=== PATIENT | male | born 1980 | race Caucasian/White ===

== ENCOUNTER 2018-06-12 20:09 | Observation (INO) | payer OTHER ==
[2018-06-12] MEDS ORDERED: SODIUM CHLORIDE 0.9% 1,000 ML IV STA (21:10)
[2018-06-12] MEDS ORDERED: MORPHINE SULFATE 4 MG/ML SYRINGE IV STA (21:10)
--- NOTE | 2018-06-12 21:12 | ED ---
Abdominal Pain HPI - General Chief Complaint: Abdominal Pain Stated Complaint: Kidney Stone Time Seen by Provider: 06/12/18 20:39 Source: patient, EMS Mode of arrival: EMS Limitations: no limitations - History of Present Illness Initial Comments: Patient is a 37-year-old male presenting for abdominal pain and was a transfer from outside facility. The patient states that for the last 3 days, he has been having called the left-sided flank pain. He was told that he had 2 stones in the left side and he had been trying hasn't outpatient management pain but he has not been able to. He admits to subjective fevers and chills as well as nausea and vomiting. He also admits to increased urination but no hematuria. He was sent here for that facility for urologic evaluation. - Related Data Allergies Allergy/AdvReac Type Severity Reaction Status Date / Time peck Allergy Rash/Hives Verified 06/12/18 20:16 Review of Systems ROS Statement: Those systems with pertinent positive or pertinent negative responses have been documented in the HPI. Constitutional: Negative for chills, fatigue and fever. HENT: Negative for congestion. Respiratory: Negative for chest tightness, shortness of breath and wheezing. Negative for cough Cardiovascular: Negative for chest pain and palpitations. Gastrointestinal: Positive for abdominal pain. Negative for abdominal distention , diarrhea, positive for nausea and vomiting. Genitourinary: Negative for dysuria. Musculoskeletal: Negative for back pain, neck pain and neck stiffness. Skin: Negative for color change. Neurological: Negative for dizziness, speech difficulty, weakness and light- headedness. Psychiatric/Behavioral: Negative for agitation and confusion. Negative for anxiety ROS Other: All systems not noted in ROS Statement are negative. Past Medical History Additional Past Medical History / Comment(s): diabetes. kidney stones History of Any Multi-Drug Resistant Organisms: None Reported Additional Past Surgical History / Comment(s): left below knee leg amputation, left leg surgery Past Psychological History: No Psychological Hx Reported Smoking Status: Current every day smoker Past Alcohol Use History: Occasional Past Drug Use History: None Reported General Exam - General Exam Comments Initial Comments: Constitutional: Pt appears well-developed and well-nourished. No distress. Head: Normocephalic and atraumatic. Eyes: EOM are normal. Neck: Normal range of motion. Neck supple. Cardiovascular: Normal rate, regular rhythm, S1 normal, S2 normal and normal heart sounds. Exam reveals no gallop and no friction rub. No murmur heard. Pulmonary/Chest: Effort normal and breath sounds normal. No tachypnea and no bradypnea. No respiratory distress. No wheezes or rales noted. Abdominal: Soft. Bowel sounds are normal. Pt exhibits no shifting dullness, no distension, no pulsatile liver, no fluid wave, no abdominal bruit and no ascites. There is no rigidity, no rebound, no guarding, no tenderness at McBurney's point and negative Berg's sign. There is no tenderness. Musculoskeletal: Normal range of motion. Neurological: Pt is alert and oriented to person, place, and time. No cranial nerve deficit. Skin: Skin is warm and dry. No rash noted. Pt is not diaphoretic. No erythema. No pallor. Psychiatric: Pt has a normal mood and affect. Pt behavior is normal. Thought content normal. Limitations: no limitations Course Vital Signs 06/12/18 06/12/18 20:12 21:52 Temperature 98.8 F Pulse Rate 73 72 Respiratory 18 18 Rate Blood Pressure 132/90 117/62 O2 Sat by Pulse 99 98 Oximetry Medical Decision Making - Medical Decision Making Laboratory studies showed that there is no significant electrolyte derangements and renal function was preserved. At the time of disposition, urinalysis was pending but the prior labs performed at the outside facility showed no evidence of urinary tract infection as well. Because the patient continued to have pain and had poor follow-up as an outpatient, it was thought that the patient should be placed in observation for evaluation by urology.Explained all labs and diagnostic test results and that we will admit patient to hospital. Pt is agreeable to plan and case has been discussed with Dr. Cagle and they agree to accept the pt. - Lab Data Result diagrams: 06/12/18 21:43 06/12/18 21:43 Lab Results 06/12/18 06/12/18 Range/Units 21:43 21:43 WBC 9.3 (3.8-10.6) k/uL RBC 4.81 (4.30-5.90) m/uL Hgb 14.3 (13.0-17.5) gm/dL Hct 43.4 (39.0-53.0) % MCV 90.3 (80.0-100.0) fL MCH 29.8 (25.0-35.0) pg MCHC 33.0 (31.0-37.0) g/dL RDW 13.8 (11.5-15.5) % Plt Count 148 L (150-450) k/uL Neutrophils % 70 % Lymphocytes % 20 % Monocytes % 5 % Eosinophils % 4 % Basophils % 1 % Neutrophils # 6.5 (1.3-7.7) k/uL Lymphocytes # 1.9 (1.0-4.8) k/uL Monocytes # 0.4 (0-1.0) k/uL Eosinophils # 0.3 (0-0.7) k/uL Basophils # 0.1 (0-0.2) k/uL Sodium 138 (137-145) mmol/L Potassium 4.9 (3.5-5.1) mmol/L Chloride 107 (98-107) mmol/L Carbon Dioxide 25 (22-30) mmol/L Anion Gap 6 mmol/L BUN 18 (9-20) mg/dL Creatinine 1.22 (0.66-1.25) mg/dL Est GFR (CKD-EPI)AfAm 87 (>60 ml/min/1.73 sqM) Est GFR (CKD-EPI)NonAf 75 (>60 ml/min/1.73 sqM) Glucose 134 H (74-99) mg/dL Calcium 8.9 (8.4-10.2) mg/dL Total Bilirubin 1.0 (0.2-1.3) mg/dL AST 22 (17-59) U/L ALT 24 (21-72) U/L Alkaline Phosphatase 42 (38-126) U/L Total Protein 7.2 (6.3-8.2) g/dL Albumin 3.9 (3.5-5.0) g/dL Disposition Clinical Impression: Intractable abdominal pain, Hydronephrosis, Renal calculi Disposition: ADMITTED IP TO THIS [facility] Condition: Good Referrals: Amrik Taylor MD [Primary Care Provider] - 1-2 days Decision to Admit Reason: Admit from EC Decision Date: 06/12/18 Decision Time: 22:40
[2018-06-12 22:04] LABS: Basophils # (A) 0.1 k/uL (0-0.2); Basophils % (A) 1 %; Eosinophils # (A) 0.3 k/uL (0-0.7); Eosinophils % (A) 4 %; HCT 43.4 % (39.0-53.0); HGB 14.3 gm/dL (13.0-17.5); Lymphocytes # (A) 1.9 k/uL (1.0-4.8); Lymphocytes % (A) 20 %; MCH 29.8 pg (25.0-35.0); MCV 90.3 fL (80.0-100.0); Mean Platelet Volume 8.7; Monocytes # (A) 0.4 k/uL (0-1.0); Monocytes % (A) 5 %; Neutrophils # (A) 6.5 k/uL (1.3-7.7); Neutrophils % (A) 70 %; Platelet Count 148 k/uL (150-450); RBC 4.81 m/uL (4.30-5.90); RDW 13.8 % (11.5-15.5); WBC 9.3 k/uL (3.8-10.6)
[2018-06-12 22:13] LABS: Albumin 3.9 g/dL (3.5-5.0); Calcium 8.9 mg/dL (8.4-10.2); Total Protein 7.2 g/dL (6.3-8.2)
[2018-06-12 22:31] LABS: Potassium 4.9 mmol/L (3.5-5.1)
[2018-06-12] MEDS ORDERED: MORPHINE SULFATE 4 MG/ML SYRINGE IV PRN (22:34)
[2018-06-12] MEDS ORDERED: HYDROcodone/APAP 5-325MG 1 EACH TAB PO PRN (22:34)
[2018-06-12] MEDS ORDERED: NALOXONE 0.4 MG/ML 1 ML VIAL IV PRN (22:34)
[2018-06-12] MEDS ORDERED: ONDANSETRON 4 MG/2 ML VIAL IVP STA (22:47)
[2018-06-12 23:28] VITALS: PULSE 84; RESP 16
[2018-06-13 07:16] LABS: Glucose,Whole Blood 97 mg/dL (75-99)
[2018-06-13 08:18] VITALS: BP 150/84; TEMP 98.6
[2018-06-13] MEDS ORDERED: BUMETANIDE 1 MG TAB PO SCH (09:45)
[2018-06-13] MEDS ORDERED: PRAVASTATIN SODIUM 40 MG TAB PO SCH (09:45)
[2018-06-13] MEDS ORDERED: LISINOPRIL 20 MG TAB PO SCH (09:45)
[2018-06-13] MEDS: INSULIN ASPART (NovoLOG) 100 UNIT/ML VIAL SQ SCH ×2 (11:11→12:21)
--- NOTE | 2018-06-13 11:16 | P.GSHP ---
History of Present Illness H&P Date: 06/13/18 Chief Complaint: Left ureteral calculi with intractable pain The patient is a 37-year-old male transferred from the [place] emergency room yesterday late in the evening for evaluation of persistent left flank pain. He developed pain in the left flank and left lower quadrant on 06/09, he says that the pain was severe and was associated with urinary frequency and urgency. He was evaluated in the [place] emergency room and noted to have microscopic hematuria. Computed tomography scan of the abdomen and pelvis with IV contrast identified two distal left ureteral calculi measuring 4 mm in diameter with secondary delay in function and drainage of the left kidney. The patient was started on Flomax and discharged but says that his pain worsened and he returned to their emergency room yesterday afternoon. Due to the persistence of the pain was elected to transfer him to this facility. The patient says that since he was admitted last night he has become more comfortable and rates his current pain as a 2 out of 10. He no longer has urgency to void. He has never experienced gross hematuria. He is tolerating regular diet. He had not been straining his urine since the onset of his pain until this morning. The patient has no personal or family history of urolithiasis. He says he usually voids every 3-5 hours during the day and has no nocturia. 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, gangrene- foot, December 13 2016 right below knee amputation, early stage renal failure, fracture of thoracic vertebra , chronic pain, peripheral arterial disease History of Any Multi-Drug Resistant Organisms: None Reported Additional Past Surgical History / Comment(s): left below knee leg amputation, ORIF fracture left femur Past Anesthesia/Blood Transfusion Reactions: No Reported Reaction Past Psychological History: Depression Smoking Status: Current every day smoker (1-1-1/2 packs per day for 20 years) Past Alcohol Use History: Occasional Additional Past Alcohol Use History / Comment(s): Start smoking at the age of 17 Past Drug Use History: None Reported - Past Family History Mother Family Medical History: Congestive Heart Failure (CHF), Renal Disease Medications and Allergies Home Medications Medication Instructions Recorded Confirmed Type Bumetanide 1 mg PO DAILY 06/12/18 06/12/18 History Carvedilol [Coreg] 6.25 mg PO BID 06/12/18 06/12/18 History Insulin Aspart [Novolog Flexpen] See Protocol SQ AC-TID 06/12/18 06/12/18 History Insulin Glargine,Hum.rec.anlog 35 unit SQ HS 06/12/18 06/12/18 History [Basaglar Kwikpen U-100] Lisinopril [Zestril] 20 mg PO DAILY 06/12/18 06/12/18 History Potassium Chloride ER [K-Dur 20] 20 meq PO DAILY 06/12/18 06/12/18 History Pravastatin Sodium [Pravachol] 40 mg PO DAILY 06/12/18 06/12/18 History Tamsulosin HCl [Flomax] 0.4 mg PO HS 06/12/18 06/12/18 History Allergies Allergy/AdvReac Type Severity Reaction Status Date / Time peck Allergy Rash/Hives Verified 06/12/18 22:49 Surgical - Exam Vital Signs Temp Pulse Resp BP Pulse Ox 98.8 F 73 18 132/90 99 06/12/18 20:12 06/12/18 20:12 06/12/18 20:12 06/12/18 20:12 06/12/18 20:12 - General well developed, well nourished, no distress, obese - ENT no hearing loss - Neck no masses, no lymphadectomy - Respiratory normal respiratory effort - Abdomen Abdomen: soft, no tender, no organomegaly - Genitourinary normal penis with no external lesions, testicles non-tender Results - Labs 06/12/18 21:43 06/12/18 21:43 Abnormal Lab Results - Last 24 Hours (Table) 06/12/18 06/12/18 Range/Units 21:43 21:43 Plt Count 148 L (150-450) k/uL Glucose 134 H (74-99) mg/dL Diabetes panel 06/12/18 Range/Units 21:43 Sodium 138 (137-145) mmol/L Potassium 4.9 (3.5-5.1) mmol/L Chloride 107 (98-107) mmol/L Carbon Dioxide 25 (22-30) mmol/L BUN 18 (9-20) mg/dL Creatinine 1.22 (0.66-1.25) mg/dL Glucose 134 H (74-99) mg/dL Calcium 8.9 (8.4-10.2) mg/dL AST 22 (17-59) U/L ALT 24 (21-72) U/L Alkaline Phosphatase 42 (38-126) U/L Total Protein 7.2 (6.3-8.2) g/dL Albumin 3.9 (3.5-5.0) g/dL Calcium panel 06/12/18 Range/Units 21:43 Calcium 8.9 (8.4-10.2) mg/dL Albumin 3.9 (3.5-5.0) g/dL Pituitary panel 06/12/18 Range/Units 21:43 Sodium 138 (137-145) mmol/L Potassium 4.9 (3.5-5.1) mmol/L Chloride 107 (98-107) mmol/L Carbon Dioxide 25 (22-30) mmol/L BUN 18 (9-20) mg/dL Creatinine 1.22 (0.66-1.25) mg/dL Glucose 134 H (74-99) mg/dL Calcium 8.9 (8.4-10.2) mg/dL Adrenal panel 06/12/18 Range/Units 21:43 Sodium 138 (137-145) mmol/L Potassium 4.9 (3.5-5.1) mmol/L Chloride 107 (98-107) mmol/L Carbon Dioxide 25 (22-30) mmol/L BUN 18 (9-20) mg/dL Creatinine 1.22 (0.66-1.25) mg/dL Glucose 134 H (74-99) mg/dL Calcium 8.9 (8.4-10.2) mg/dL Total Bilirubin 1.0 (0.2-1.3) mg/dL AST 22 (17-59) U/L ALT 24 (21-72) U/L Alkaline Phosphatase 42 (38-126) U/L Total Protein 7.2 (6.3-8.2) g/dL Albumin 3.9 (3.5-5.0) g/dL Assessment and Plan (1) Left ureteral calculus Narrative/Plan: The patient has had pain in his left flank and left lower quadrant since 2 secondary to two 4 mm distal ureteral calculi. The likelihood of stones in this location and size passing spontaneously is high. He has not been straining his urine and says that he has been comfortable since he was admitted through the emergency room last night. It is possible that he has passed both calculi as his previous urgency to void has also resolved. BUN and creatinine will be checked this morning and if they are improved the patient will be discharged and followed as an outpatient. If his pain recurs then ureteroscopy with lithotripsy may need to be considered. Current Visit: Yes Status: Acute Code(s): N20.1 - CALCULUS OF URETER SNOMED Code(s): 20501324
[2018-06-13] MEDS: POTASSIUM CHLORIDE ER 20 MEQ TAB.ER PO SCH ×2 (11:23→11:57)
[2018-06-13 11:30] LABS: Glucose,Whole Blood 136 mg/dL (75-99)
[2018-06-13 11:57] LABS: Blood Urea Nitrogen 18 mg/dL (9-20)
[2018-06-13] MEDS ORDERED: CARVEDILOL 6.25 MG TAB PO SCH (17:30)
[2018-06-13] MEDS ORDERED: TAMSULOSIN 0.4 MG CAP.ER.24H PO SCH (21:00)
[2018-06-13] MEDS ORDERED: INSULIN DETEMIR (LEVEMIR) 100 UNIT/ML SYR SQ SCH (21:00)
== END 2018-06-13 14:11 | disposition home or self-care (01) ==
LOC: EC 20:09 → 4SSUR 22:40
PROVIDERS: ADMIT Urology; ATTEND Urology
DX: N13.2 Hydronephrosis with renal and ureteral calculous obstruction (principal); I12.9 Hypertensive chronic kidney disease with stage 1 through stage 4 chronic kidney disease, or unspecified chronic kidney disease; E11.22 Type 2 diabetes mellitus with diabetic chronic kidney disease; N18.9 Chronic kidney disease, unspecified; G89.29 Other chronic pain; E11.51 Type 2 diabetes mellitus with diabetic peripheral angiopathy without gangrene; F17.210 Nicotine dependence, cigarettes, uncomplicated; F32.9 Major depressive disorder, single episode, unspecified; Z79.4 Long term (current) use of insulin; Z79.899 Other long term (current) drug therapy; Z87.442 Personal history of urinary calculi; Z91.018 Allergy to other foods; Z89.511 Acquired absence of right leg below knee; Z89.512 Acquired absence of left leg below knee; Z84.1 Family history of disorders of kidney and ureter; Z82.49 Family history of ischemic heart disease and other diseases of the circulatory system
CPT/HCPCS: 96361; 96374; 96375; 99285; 36415; 80053; 82565; 84520; 85025; G0378 ×2; J2270; J2405

== ENCOUNTER → 2019-02-24 | Outpatient (CLI) | payer OTHER ==
--- NOTE | 2019-02-24 14:47 | US ---
DATE OF EXAM: 02/24/2019 1:58 PM COMPARISON: NONE CLINICAL HISTORY: E11.621 TYPE 2 DIABETIC MELLITUS W/FOOT ULCER. Non-healing wound right 2nd and 4th digit, left leg amputated just below knee SIDE PERFORMED: Bilateral LOWER EXTREMITY VENOUS INSUFFICIENCY SIDE PERFORMED: Bilateral 1) Color flow is present and patency is documented in the following vessels. No DVT or SVT is noted . EIV Common Femoral Vein Deep Femoral Vein Femoral Vein Popliteal Vein Proximal Calf Veins Greater Saph Vein Upper Small Saph Vein 2) There is venous reflux noted at the following venous levels: Left GSV and mid femoral vein, left popliteal veins not visualized due to amputation IMPRESSION: Venous reflux as noted.
--- NOTE | 2019-03-02 09:21 | P.ARTDOP ---
Arterial Doppler LOWER EXTREMITY ARTERIAL DOPPLER: DATE OF SERVICE: 02/24/2019 Reason for study: Ulcers right foot. Doppler waveforms: Multiphasic throughout on the right. Status post amputation left leg. Pulse volume recording: []. Pressure gradients: None. Ankle-brachial indices: Greater than 1 on the right. Toe pressures: 153 on the right, [] on the left Impression: Normal right sided study.
== END | disposition home or self-care (01) ==
LOC: RADUSWWP 13:32
PROVIDERS: ATTEND Family Medicine
DX: I87.8 Other specified disorders of veins (principal); E11.621 Type 2 diabetes mellitus with foot ulcer; Z89.512 Acquired absence of left leg below knee; F17.210 Nicotine dependence, cigarettes, uncomplicated
CPT/HCPCS: 93922; 93970